=== PATIENT | female | born 1960 | race Two or more races ===

== ENCOUNTER 2023-09-24 05:45 | Emergency (ER) | payer OTHER ==
[~2023-09-24] VITALS: Ht 160 cm; Wt 80.7 kg
[2023-09-24] MEDS ORDERED: DAFLONEX-XL 11300 MG (06:05)
[2023-09-24] MEDS ORDERED: 0.9 % SODIUM CHLORIDE 1,000 ML IV STA (07:25)
[2023-09-24] MEDS ORDERED: ONDANSETRON HCL 2 MG/ML VIAL IV STA (07:27)
[2023-09-24] MEDS ORDERED: PROMETHAZINE HCL 25 MG/ML AMPUL IM STA (07:27)
[2023-09-24] MEDS ORDERED: FAMOTIDINE/PF 20 MG/2 ML VIAL IV PUSH STA (07:27)
[2023-09-24 08:05] LABS: HEMATOCRIT 45.1 % (36.0-45.00); HEMOGLOBIN 15.7 g/dL (12.0-15.00); MEAN CELL VOLUME 97.7 fL (80.00-100.00); MEAN CORPUSCULAR HEMOGLOBIN 33.9 pg (27.00-32.0); MEAN CORPUSCULAR HGB CONC 34.7 g/dl (32.0-36.0); PLATELET COUNT 214 K/uL (150-450); RED BLOOD COUNT 4.62 M/uL (4.00-6.00); RED CELL DISTRIBUTION WIDTH 13.9 % (11.5-14.5)
[2023-09-24 08:33] LABS: ALBUMIN 3.7 gm/dL (3.4-5.0); BILIRUBIN TOTAL 0.48 mg/dL (0.3-1.2); CALCIUM 9.5 mg/dL (8.5-10.1); CREATININE SERUM 0.7 mg/dL (0.55-1.02); GFR 83.98; POTASSIUM 3.53 mEq/L (3.5-5.1); TOTAL PROTEIN 7.7 gm/dL (6.4-8.2)
[2023-09-24] MEDS ORDERED: PEPCID AC20 MG PO (10:13)
[2023-09-24] MEDS ORDERED: ZOFRAN8 MG PO (10:13)
== END 2023-09-24 10:34 | disposition home or self-care (01) ==
LOC: ER 05:45
DX: R10.11 Right upper quadrant pain (principal); R10.9 Unspecified abdominal pain
CPT/HCPCS: 36415; 76700; 96365; 96366; 96372; 99284; J2405; J3490 ×2; J7030

== ENCOUNTER 2024-07-22 18:45 | Emergency (ER) | payer OTHER ==
[~2024-07-22] VITALS: Ht 157.5 cm; Wt 85.3 kg
[~2024-07-22 18:45] MED LIST: DAFLONEX-XL 11300 MG; PEPCID AC20 MG PO; ZOFRAN8 MG PO
[2024-07-22] MEDS ORDERED: DICLOFENAC POTA50 MG PO (19:22)
[2024-07-22] MEDS ORDERED: KETOROLAC TROMETHAMINE 60 MG VIAL IM STA (20:34)
[2024-07-22] MEDS ORDERED: DEXAMETHASONE SODIUM PHOSPHATE 4 MG/ML VIAL IM STA (20:35)
[2024-07-22] MEDS ORDERED: ORPHENADRINE CITRATE 30 MG/ML AMPUL IM STA (20:35)
[2024-07-22] MEDS ORDERED: KETOROLAC TROMETHAMINE 60 MG VIAL IM ONE (20:39)
[2024-07-22] MEDS ORDERED: ORPHENADRINE CITRATE 30 MG/ML AMPUL ONE (20:40)
[2024-07-22] MEDS ORDERED: DEXAMETHASONE SODIUM PHOSPHATE 4 MG/ML VIAL ONE (20:40)
== END 2024-07-22 21:07 | disposition home or self-care (01) ==
LOC: ER 18:45
DX: M54.59 Other low back pain (principal)
CPT/HCPCS: 96372; 99282; J1100; J1885; J2360

== ENCOUNTER 2024-07-28 14:39 | Emergency (ER) | payer OTHER ==
[~2024-07-28] VITALS: Ht 165.1 cm; Wt 77.1 kg
[~2024-07-28 14:39] MED LIST changes: +DICLOFENAC POTA50 MG PO
[2024-07-28 19:12] LABS: HEMATOCRIT 45.2 % (36.0-45.00); HEMOGLOBIN 15.5 g/dL (12.0-15.00); MEAN CELL VOLUME 97.2 fL (80.00-100.00); MEAN CORPUSCULAR HEMOGLOBIN 33.4 pg (27.00-32.0); MEAN CORPUSCULAR HGB CONC 34.3 g/dl (32.0-36.0); PLATELET COUNT 240 K/uL (150-450); RED BLOOD COUNT 4.66 M/uL (4.00-6.00); RED CELL DISTRIBUTION WIDTH 13.9 % (11.5-14.5)
[2024-07-28 19:50] LABS: ALBUMIN 3.9 gm/dL (3.4-5.0); BILIRUBIN TOTAL 0.48 mg/dL (0.3-1.2); CALCIUM 9.9 mg/dL (8.5-10.1); CREATININE SERUM 0.62 mg/dL (0.55-1.02); GFR 96.31; GLOBULINA 3.2 G/DL (2.4-3.5); POTASSIUM 3.98 mEq/L (3.5-5.1); TOTAL PROTEIN 7.1 gm/dL (6.4-8.2)
[2024-07-28] MEDS ORDERED: MECLIZINE HCL25 MG PO (23:37)
== END 2024-07-28 23:47 | disposition home or self-care (01) ==
LOC: ER 14:39
PROVIDERS: Preventive Medicine Public Health & General Preventive Medicine
DX: H81.10 Benign paroxysmal vertigo, unspecified ear (principal); E03.8 Other specified hypothyroidism; K29.70 Gastritis, unspecified, without bleeding; I87.2 Venous insufficiency (chronic) (peripheral)